=== PATIENT | male | born 1985 ===

== ENCOUNTER 2019-04-26 17:11 | Emergency (ER) | payer SELFPAY ==
[~2019-04-26] VITALS: Ht 177.8 cm; Wt 72.1 kg
[2019-04-26 17:50] VITALS: BP 117/72
--- NOTE | 2019-04-26 19:06 | NUR ---
LAB REPORTS THAT PT IS NOT IN THE LOBBY, LOBBY CHECKED
--- NOTE | 2019-04-26 19:48 | NUR ---
NO ANSWER WHEN CALLED FROM LOBBY, NO INFO TO CALL AND CONTACT PT
--- NOTE | 2019-04-26 19:59 | NUR ---
NO ANSWER WHEN CALLED FOR ROOM
== END 2019-04-26 20:00 | disposition left against medical advice (07) ==
LOC: ED 17:45
DX: R10.9 Unspecified abdominal pain (principal); R41.0 Disorientation, unspecified
CPT/HCPCS: 74176; 99284